=== PATIENT | male | born 1940 | race Caucasian/White ===

== ENCOUNTER → 2021-07-30 | Outpatient (CLI) | payer MEDICARE ==
[~2021-07-30] VITALS: Ht 185 cm; Wt 120.0 kg
[~2021-07-30] MED LIST: CATHETER FLUSH 10 ML SYR IV PRN; REGADENOSON 0.4 MG/5 ML SYR (LEXISCAN) IV ONE
[2021-07-30 09:33] VITALS: BP 175/50
--- NOTE | 2021-07-30 11:29 | Cardiology Stress Test Report ---
Stress Test Report Date of Procedure/Referring: Date of Procedure: Jul 30, 2021 PCP Pamella Lei MD Admitting Physician Indications: HTN Baseline Heart Rate: 80 Baseline Blood Pressure: Blood Pressure Systolic: 175 Blood Pressure Diastolic: 50 Baseline Vitals Vital Signs Date Time Temp Pulse Resp B/P (MAP) Pulse Ox O2 Delivery O2 Flow Rate FiO2 07/30/21 09:33 75 175/50 (91) 98 Baseline EKG: Baseline EKG: A Fib Summary After explaining the procedure to the patient, he signed a consent and then brought to the stress nuclear laboratory. Patient received 0.4 mg Lexiscan for stress test, ECG, heart rate and blood pressure were monitored continuously. Resting and stress dose of radio tracer were injected, imaging was acquired and reviewed in short axis, horizontal long axis and vertical long axis views. TID: 0.93 SSS: 2 SDS: 2 EF: 52 1. Patient tolerated Lexiscan well 2. Baseline atrial fibrillation with multiple PVCs noted during test 3. Diaphragmatic attenuation with typical male pattern with no significant ischemia or infarction on SPECT images 4. Normal left ventricular size, EF 52%, patient has underlying atrial fibrillation affecting the quality of the calculation PAMELLA LEI MD Jul 30, 2021 11:29
== END ==
LOC: CARD 08:45
PROVIDERS: ATTEND Internal Medicine Cardiovascular Disease
DX: I08.2 Rheumatic disorders of both aortic and tricuspid valves (principal); I11.9 Hypertensive heart disease without heart failure; I25.10 Atherosclerotic heart disease of native coronary artery without angina pectoris
CPT/HCPCS: 78452; 93017; 93306; A9502